=== PATIENT | male | born 1970 | race Caucasian/White ===

== ENCOUNTER 2017-02-08 15:54 | Emergency (ER) | payer OTHER ==
--- NOTE | 2017-02-08 16:56 | ED Physician Documentation ---
PD HPI BACK INJURY - Stated complaint Stated Complaint: BACK PX - History obtained from History obtained from: Patient - History of Present Illness Location: Lower (He's had ongoing lower back pain is mild for the last 6 months. It is in the low back and radiates a little bit into the buttocks but not further. Sometimes worse when he raises the right leg. Today acutely worse while using a screwdriver. There is no weakness, numbness, or tingling of the saddle area or extremities. No fever.) Review of Systems Constitutional: denies: Fever, Chills Respiratory: denies: Dyspnea, Cough GI: denies: Abdominal Pain, Nausea PD PAST MEDICAL HISTORY - Past Medical History Past Medical History: No - Past Surgical History Ortho: Shoulder arthroplasty - Present Medications Home Medications: Ambulatory Orders Medication Instructions Recorded Confirmed Cyclobenzaprine [Flexeril] 10 mg PO TID PRN #20 tablet 02/08/17 Naproxen 500 mg PO BID PRN #30 tablet 02/08/17 - Allergies Allergies/Adverse Reactions: Allergies Allergy/AdvReac Type Severity Reaction Status Date / Time ampicillin Allergy Rash Verified 02/08/17 16:01 - Social History Does the pt smoke?: Yes Smoking Status: Current every day smoker Does the pt drink ETOH?: Yes ETOH Use: Beer Does the pt have substance abuse?: No - Immunizations Immunizations are current?: No Immunizations: TDAP >10years/unknown - POLST Patient has POLST: No PD ED PE NORMAL - Vitals Vital signs reviewed: Yes - General General: Alert and oriented X 3, No acute distress - Abdomen Abdomen: Non tender - Back Back: No CVA TTP, No spinal TTP - Extremities Extremities: Other (The patient has equal and normal patellar and Achilles reflexes bilaterally. Normal sensation in all areas of the legs. Patient denies saddle anesthesia. Normal strength in flexion and extension at the ankles, knees and flexion of the hips.) - Neuro Neuro: Alert and oriented X 3, Normal speech - Psych Psych: Normal mood, Normal affect Results - Vitals Vitals: Vital Signs - 24 hr 02/08/17 16:00 Temperature 36 C L Heart Rate 106 H Respiratory 18 Rate Blood Pressure 142/88 H O2 Saturation 100 Oxygen O2 Source Room air PD MEDICAL DECISION MAKING - ED course ED course: Spinal epidural abscess was considered in this patient. The patient has no fever , is not diabetic, has no spinal tenderness, does not use IV drugs, and no bilateral neurologic symptoms. Therefore, spinal epidural abscess is considered exceedingly unlikely. Departure - Departure Disposition: 01 Home, Self Care Clinical Impression: Back pain Qualifiers: Back pain location: low back pain Chronicity: chronic Back pain laterality: midline Sciatica presence: without sciatica Qualified Code(s): M54.5 - Low back pain; G89.29 - Other chronic pain Condition: Good Record reviewed to determine appropriate education?: Yes Instructions: ED Low Back Pain Injury Prescriptions: Cyclobenzaprine [Flexeril] 10 mg PO TID PRN #20 tablet PRN Reason: Pain Naproxen 500 mg PO BID PRN #30 tablet PRN Reason: Pain Comments: Call your doctor to arrange a follow up appointment. Make the next available appointment. In the interim return anytime if worse or if new symptoms develop. Your blood pressure was elevated today on check in to the emergency department. This does not mean that you have hypertension, it is a common phenomenon to check into the emergency department and have elevated blood pressure. I recommend that you see your primary care physician within the week to have it rechecked when you're feeling better.
[2017-02-08 17:02] VITALS: BP 140/90
== END 2017-02-08 17:04 | disposition home or self-care (01) ==
LOC: ED 15:54
DX: M54.5 Low back pain (principal); R03.0 Elevated blood-pressure reading, without diagnosis of hypertension; F17.200 Nicotine dependence, unspecified, uncomplicated
CPT/HCPCS: 99283

== ENCOUNTER 2017-06-17 08:45 | Emergency (ER) | payer OTHER ==
--- NOTE | 2017-06-17 09:17 | ED Physician Documentation ---
PD HPI ABD PAIN - Stated complaint Stated Complaint: MALE - Chief complaint Chief Complaint: Abd Pain - History obtained from History obtained from: Patient - History of Present Illness Timing - onset: Last night Timing - details: Still present Quality: Sharp Location: Suprapubic, Other (right groin) Worsened by: Moving Associated symptoms: No: Fever, Nausea, Vomiting, Diarrhea, Dysuria Similar symptoms before: Has not had sx before - Additional information Additional information: The patient is a 46-year-old male who presents with lower abdominal pain radiating to the right groin. His pain started last night after heavy lifting yesterday. He describes it as sharp pain that is worse with moving or straining. He denies fever, nausea or vomiting, or dysuria. He reports having similar pain about 2 years ago but did not have it evaluated. He has had no abdominal surgery. Review of Systems Constitutional: denies: Fever Nose: denies: Congestion Throat: denies: Sore throat Cardiac: denies: Chest pain / pressure Respiratory: denies: Dyspnea, Cough GI: reports: Abdominal Pain. denies: Nausea, Vomiting, Diarrhea : denies: Dysuria, Hematuria, Discharge Skin: denies: Rash Musculoskeletal: denies: Back pain, Extremity pain Neurologic: denies: Focal weakness, Numbness, Headache PD PAST MEDICAL HISTORY - Past Medical History Past Medical History: No Respiratory: None Neuro: None Endocrine/Autoimmune: None GI: None - Past Surgical History Ortho: Shoulder arthroplasty HEENT: Rhinoplasty - Present Medications Home Medications: Ambulatory Orders Medication Instructions Recorded Confirmed Naproxen 500 mg PO BID PRN #30 tablet 02/08/17 06/17/17 - Allergies Allergies/Adverse Reactions: Allergies Allergy/AdvReac Type Severity Reaction Status Date / Time ampicillin Allergy Rash Verified 02/08/17 16:01 - Social History Does the pt smoke?: Yes Smoking Status: Current every day smoker Does the pt drink ETOH?: Yes Does the pt have substance abuse?: No - Immunizations Immunizations are current?: No Immunizations: TDAP >10years/unknown - POLST Patient has POLST: No PD ED PE NORMAL - Vitals Vital signs reviewed: Yes (Borderline hypertension initially.) - General General: Alert and oriented X 3, Well developed/nourished - HEENT HEENT: Atraumatic, EOMI, Pharynx benign - Neck Neck: No adenopathy, No JVD - Cardiac Cardiac: RRR, No murmur - Respiratory Respiratory: No respiratory distress, Clear bilaterally - Abdomen Abdomen: Normal bowel sounds, Soft, Non distended, Other (Tenderness to palpation in the right groin, over the inguinal canal.) - Male Male : Other (No scrotal or testicular swelling or tenderness.) - Extremities Extremities: No edema, No calf tenderness / cord - Neuro Neuro: Alert and oriented X 3, No motor deficit, No sensory deficit Results - Vitals Vitals: Oxygen O2 Source Room air - Rads (name of study) Ultrasound pelvic, male Radiology: Prelim report reviewed, EMP read contemporaneously, See rad report ( Reducible fat-containing right inguinal hernia.) PD MEDICAL DECISION MAKING - ED course Complexity details: reviewed results, re-evaluated patient, considered differential, d/w patient ED course: The patient's presentation is most consistent with right inguinal hernia, and this was confirmed with pelvic ultrasound which revealed a reducible fat- containing right inguinal hernia. No therapeutic treatment was clinically indicated at this time. I discussed with him the advisability of surgical repair on a nonemergent basis. I also discussed with him potentially worrisome signs or symptoms that should prompt reevaluation in the emergency department. Departure - Departure Disposition: 01 Home, Self Care Clinical Impression: Inguinal hernia Qualifiers: Obstruction and gangrene presence: without obstruction or gangrene Laterality: unilateral Recurrence: not specified as recurrent Qualified Code(s): K40.90 - Unilateral inguinal hernia, without obstruction or gangrene, not specified as recurrent Condition: Stable Instructions: ED Hernia Inguinal Follow-Up: JENNY CONTRERAS [Primary Care Provider] - Comments: Avoid heavy lifting or straining. Follow-up with your primary physician for referral to a general surgeon. Return to the emergency department if you develop increasing abdominal pain, persistent vomiting, or otherwise worsening symptoms. Discharge Date/Time: 06/17/17 11:12
--- NOTE | 2017-06-17 10:11 | Ultrasound Report ---
PELVIC ULTRASOUND: 06/17/2017 HISTORY: Right groin pain and tenderness. TECHNIQUE: Real-time scanning by the shoe salesperson with saved static images reviewed. FINDINGS: In the area of pain, there is a reducible fat-containing inguinal hernia. The defect in the anterior abdominal wall measures approximately 1 cm and the hernia sac measures approximately 4.6 x 1.1 x 1.8 cm. No peristalsis or fluid is seen within the hernia. IMPRESSION: REDUCIBLE FAT-CONTAINING RIGHT INGUINAL HERNIA. JOB #: [id number] EXT JOB #: [id number] [facility]
[2017-06-17 12:02] VITALS: BP 136/71
== END 2017-06-17 11:12 | disposition home or self-care (01) ==
LOC: ED 08:45
DX: K40.90 Unilateral inguinal hernia, without obstruction or gangrene, not specified as recurrent (principal); F17.200 Nicotine dependence, unspecified, uncomplicated
CPT/HCPCS: 76857; 81001; 81003; 87086; 99283

== ENCOUNTER 2017-12-04 16:07 | Emergency (ER) | payer OTHER ==
[2017-12-04 16:46] LABS: GLUCOSE, URINE (UA) NEGATIVE (NEGATIVE); KETONES,URINE (UA) 15 mg/dL (NEGATIVE); LEUKOCYTE ESTERASE, URINE SMALL (NEGATIVE); NITRITE,URINE NEGATIVE (NEGATIVE); OCCULT BLOOD,URINE LARGE (NEGATIVE); PROTEIN,URINE 30 mg/dL (NEGATIVE); UROBILINOGEN,URINE 1 (NORMAL) E.U./dL (NORMAL)
[2017-12-04 17:03] LABS: BILIRUBIN,URINE SMALL (NEGATIVE); CLARITY,URINE HAZY (CLEAR); ICTOTEST,URINE POSITIVE
[2017-12-04 17:04] LABS: BACTERIA,URINE Moderate /HPF (None Seen); SQUAMOUS EPITHELIAL CELL,UR RARE Squamous (<= Few); WBC CLUMPS,URINE PRESENT
--- NOTE | 2017-12-04 17:58 | ED Physician Documentation ---
History of Present Illness - Stated complaint Stated Complaint: MALE - Chief complaint Chief Complaint: Abd Pain - History obtained from History obtained from: Patient - History of Present Illness Timing: How many days ago (4) Pain level max: 8 Pain level now: 8 Improved by: nothing Worsened by: urination - Additonal information Additional information: states dysuria and urinary frequency x 4 days. States blood in urine. States no history of UTI's. States had mesh removal for an umbilical hernia in September of this year in [place]. Not sexually active. Review of Systems Ten Systems: 10 systems reviewed and negative Constitutional: denies: Fever, Chills Ears: denies: Ear pain Nose: denies: Rhinorrhea / runny nose, Congestion Throat: denies: Sore throat Cardiac: denies: Chest pain / pressure Respiratory: denies: Cough GI: denies: Nausea, Vomiting, Constipation Skin: denies: Rash Musculoskeletal: denies: Neck pain Neurologic: denies: Focal weakness, Numbness, Headache PD PAST MEDICAL HISTORY - Past Medical History Past Medical History: Yes Respiratory: None Neuro: None Endocrine/Autoimmune: None GI: None - Past Surgical History Ortho: Shoulder arthroplasty HEENT: Rhinoplasty - Present Medications Home Medications: Ambulatory Orders Medication Instructions Recorded Confirmed Ciprofloxacin HCl [Cipro] 500 mg PO BID #20 tablet 12/04/17 Dextroamphetamine/Amphetamine 12/04/17 [Adderall 20 mg Tablet] Hydrocodone/Acetaminophen 1 - 2 each PO Q6H PRN #14 tablet 12/04/17 [Hydrocodon-Acetaminophen 5-325] Promethazine [Phenergan] 25 mg PO Q6H PRN #10 tab 12/04/17 buPROPion [Wellbutrin Sr] 12/04/17 - Allergies Allergies/Adverse Reactions: Allergies Allergy/AdvReac Type Severity Reaction Status Date / Time ampicillin Allergy Rash Verified 12/04/17 16:20 - Social History Does the pt smoke?: Yes Smoking Status: Current every day smoker Does the pt drink ETOH?: Yes Does the pt have substance abuse?: No - Immunizations Immunizations are current?: No Immunizations: TDAP >10years/unknown - POLST Patient has POLST: No PD ED PE NORMAL - Vitals Vital signs reviewed: Yes - General General: Alert and oriented X 3, No acute distress - HEENT HEENT: Moist mucous membranes - Neck Neck: Supple, no meningeal sign - Cardiac Cardiac: RRR, Strong equal pulses - Respiratory Respiratory: No respiratory distress, Clear bilaterally - Abdomen Abdomen: Soft, Non tender, Non distended - Back Back: No spinal TTP, Other (mild B CVAT) - Derm Derm: Warm and dry - Neuro Neuro: Alert and oriented X 3 Results - Vitals Vitals: Vital Signs - 24 hr 12/04/17 12/04/17 12/04/17 16:15 18:46 19:38 Temperature 37.4 C Heart Rate 118 H 100 101 H Respiratory 24 15 16 Rate Blood Pressure 121/74 147/88 H 126/75 O2 Saturation 100 100 100 12/04/17 20:44 Temperature Heart Rate 98 Respiratory 16 Rate Blood Pressure 157/87 H O2 Saturation 95 Oxygen O2 Source Room air - Labs Labs: Laboratory Tests 12/04/17 12/04/17 12/04/17 16:20 18:20 18:20 WBC 17.3 H RBC 4.66 L Hgb 13.4 L Hct 40.7 L MCV 87.2 MCH 28.7 MCHC 32.9 RDW 14.3 Plt Count 236 MPV 6.9 L Neut # MANAGER EDITORIAL Lymph # MANAGER EDITORIAL [place] # MANAGER EDITORIAL Eos # MANAGER EDITORIAL Baso # MANAGER EDITORIAL Absolute Nucleated RBC MANAGER EDITORIAL Total Counted 100 Band Neuts % (Manual) 4 Reactive Lymphs % (Man) 2 Abnorm Lymph % (Manual) 0 Nucleated RBC % MANAGER EDITORIAL Neutrophils # (Manual) 14.5 H Lymphocytes # (Manual) 1.6 Monocytes # (Manual) 1.2 H Eosinophils # (Manual) 0.0 Basophils # (Manual) 0.0 Differential Comment MANUAL DIFFERENTIAL Platelet Estimate NORMAL (130-450,000) Platelet Morphology NORMAL APPEARANCE RBC Morph Micro Appear NORMAL APPEARANCE Sodium 132 L Potassium 4.0 Chloride 98 L Carbon Dioxide 25 Anion Gap 9.0 BUN 18 Creatinine 1.3 H Estimated GFR (MDRD) 59 L Glucose 107 H Lactic Acid Calcium 8.9 Total Bilirubin 1.1 H AST 15 ALT 19 Alkaline Phosphatase 62 Total Protein 7.7 Albumin 3.9 Globulin 3.8 Albumin/Globulin Ratio 1.0 Lipase < 10 L Urine Color DARK YELLOW Urine Clarity HAZY Urine pH 6.0 Ur Specific [place] 1.025 Urine Protein 30 H Urine Glucose (UA) NEGATIVE Urine Ketones 15 H Urine Occult Blood LARGE H Urine Nitrite NEGATIVE Urine Bilirubin SMALL H Urine Urobilinogen 1 (NORMAL) Ur Leukocyte Esterase SMALL H Urine RBC 11-25 H Urine WBC >25 H Urine WBC Clumps PRESENT Ur Squamous Epith Cells RARE Squamous Urine Bacteria Moderate H Ur Microscopic Review INDICATED Urine Culture Comments INDICATED 12/04/17 18:20 WBC RBC Hgb Hct MCV MCH MCHC RDW Plt Count MPV Neut # Lymph # [place] # Eos # Baso # Absolute Nucleated RBC Total Counted Band Neuts % (Manual) Reactive Lymphs % (Man) Abnorm Lymph % (Manual) Nucleated RBC % Neutrophils # (Manual) Lymphocytes # (Manual) Monocytes # (Manual) Eosinophils # (Manual) Basophils # (Manual) Differential Comment Platelet Estimate Platelet Morphology RBC Morph Micro Appear Sodium Potassium Chloride Carbon Dioxide Anion Gap BUN Creatinine Estimated GFR (MDRD) Glucose Lactic Acid 1.1 Calcium Total Bilirubin AST ALT Alkaline Phosphatase Total Protein Albumin Globulin Albumin/Globulin Ratio Lipase Urine Color Urine Clarity Urine pH Ur Specific [place] Urine Protein Urine Glucose (UA) Urine Ketones Urine Occult Blood Urine Nitrite Urine Bilirubin Urine Urobilinogen Ur Leukocyte Esterase Urine RBC Urine WBC Urine WBC Clumps Ur Squamous Epith Cells Urine Bacteria Ur Microscopic Review Urine Culture Comments PD MEDICAL DECISION MAKING - ED course Complexity details: reviewed results, re-evaluated patient, considered differential, d/w patient ED course: Patient is a 47-year-old male who presents to the emergency department with what appears to be a UTI, he did appear that he was not feeling well in the emergency department and was given IV fluids as well as IV antibiotics for possible early pyelonephritis. [place] much better after treatment. Pain well controlled. Will place on pain medication for home as well as antibiotics. He will return if he worsens. Does not appear septic at this time. Patient counseled regarding signs and symptoms for which I believe and urgent re- evaluation would be necessary. Patient with good understanding of and agreement to plan and is comfortable going home at this time This document was made in part using voice recognition software. While efforts are made to proofread this document, sound alike and grammatical errors may occur. Departure - Departure Disposition: 01 Home, Self Care Clinical Impression: Pyelonephritis Condition: Good Instructions: ED UTI Pyelonephritis Male Follow-Up: your,doctor in 3 days [Other] Prescriptions: Ciprofloxacin HCl [Cipro] 500 mg PO BID #20 tablet Hydrocodone/Acetaminophen [Hydrocodon-Acetaminophen 5-325] 1 - 2 each PO Q6H PRN #14 tablet PRN Reason: pain Promethazine [Phenergan] 25 mg PO Q6H PRN #10 tab PRN Reason: Nausea / Vomiting Comments: Take all antibiotics until gone. Return if you worsen. If you are not feeling significantly improved in 24-48 hours, return for a recheck. Do not drink alcohol or drive while on narcotic pain medicine. Note that many narcotic pain relievers also contain tylenol/acetaminophen. Please ensure that your total dose of acetaminophen from all sources does not exceed 3 grams (3000mg) per day. You may constipated on this medication, take a stool softener such as "Colace" twice a day while you are on it. Also recommend a [id number]-tgp-noykseo laxative such as senna or MiraLAX any day that you do not have a bowel movement. If you received narcotic pain medication in the emergency department, do not drive or operate machinery for the next 24 hours. Discharge Date/Time: 12/04/17 20:45
[2017-12-04] MEDS ORDERED: SODIUM CHLORIDE 0.9% 1,000 ML IV ONE ×2 (18:00)
[2017-12-04] MEDS ORDERED: KETOROLAC 60 MG/2 ML VIAL IVP STA (18:02)
[2017-12-04 18:27] LABS: BASOPHILS % (AUTO) 0.4 %; EOSINOPHILS % (AUTO) 0.3 %; HGB - HEMOGLOBIN 13.4 g/dL (14.0-18.0); MEAN CORPUSCULAR HEMOGLOBIN 28.7 pg (27.0-31.0); MEAN CORPUSCULAR HGB CONC 32.9 g/dL (32.0-36.0); MEAN CORPUSCULAR VOLUME 87.2 fL (80.0-94.0); MEAN PLATELET VOLUME 6.9 fL (7.4-11.4); MONOCYTES % (AUTO) 8.2 %; NEUTROPHILS % (AUTO) 82.1 %; PLT - PLATELET COUNT 236 10^3/uL (130-450); RED BLOOD COUNT 4.66 10^6/uL (4.70-6.10); RED CELL DISTRIBUTION WIDTH 14.3 % (12.0-15.0); WHITE BLOOD COUNT 17.3 x10^3/uL (4.8-10.8)
[2017-12-04] MEDS ORDERED: cefTRIAXone 1 GM VIAL IVP STA (18:33)
[2017-12-04 18:35] LABS: ABNORMAL LYMPHS % (MANUAL) 0 %
[2017-12-04 18:52] LABS: ALBUMIN 3.9 g/dL (3.2-5.5); ALKALINE PHOSPHATASE 62 IU/L (42-121); ALT ALANINE AMINOTRANSFERASE 19 IU/L (10-60); AST ASPARTATE AMINOTRANSFERASE 15 IU/L (10-42); BILIRUBIN,TOTAL 1.1 mg/dL (0.2-1.0); BUN - BLOOD UREA NITROGEN 18 mg/dL (6-20); CALCIUM 8.9 mg/dL (8.5-10.3); CARBON DIOXIDE - CO2 25 mmol/L (21-32); CHLORIDE 98 mmol/L (101-111); CREATININE 1.3 mg/dL (0.6-1.2); GFR - MDRD 59 (>89); GLUCOSE 107 mg/dL (70-100); LIPASE < 10 U/L (22-51); SODIUM 132 mmol/L (135-145); TOTAL PROTEIN 7.7 g/dL (6.7-8.2)
[2017-12-04 19:31] LABS: BAND NEUTROPHILS % (MANUAL) 4 %; LYMPHOCYTES # (MANUAL) 1.6 10^3/uL (1.5-3.5); LYMPHOCYTES % (MANUAL) 7 %; MONOCYTES # (MANUAL) 1.2 10^3/uL (0.0-1.0); NEUTROPHILS # (MANUAL) 14.5 10^3/uL (1.5-6.6); NEUTROPHILS % (MANUAL) 80 %
[2017-12-04 19:32] LABS: PLATELET ESTIMATE, MANUAL NORMAL (130-450,000) (NORMAL); PLATELET MORPHOLOGY NORMAL APPEARANCE (NORMAL); RBC MORPHOLOGY (MULTIPLE) NORMAL APPEARANCE (NORMAL)
[2017-12-04 19:33] LABS: DIFFERENTIAL COMMENT MANUAL DIFFERENTIAL
[2017-12-04 20:45] VITALS: BP 157/87
== END 2017-12-04 20:45 | disposition home or self-care (01) ==
LOC: ED 16:07
DX: N12 Tubulo-interstitial nephritis, not specified as acute or chronic (principal); F17.200 Nicotine dependence, unspecified, uncomplicated
CPT/HCPCS: 36415; 80053; 81001; 81003; 83605; 83690; 85025; 87077; 87086; 96374; 96375; 99283; 99284

== ENCOUNTER 2018-09-27 00:52 | Emergency (ER) | payer OTHER ==
[2018-09-27] MEDS ORDERED: oxyCODONE 5 MG TABLET PO STA (01:08)
[2018-09-27] MEDS ORDERED: IBUPROFEN 400 MG TABLET PO STA (01:08)
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
[2018-09-27] MEDS ORDERED: oxyCODONE/ACET 5/325 Prepack 4 PO STA (01:18)
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
[2018-09-27] MEDS ORDERED: BACITRACIN OINT TOP STA (01:53)
[2018-09-27 02:50] VITALS: BP 123/71
== END 2018-09-27 02:52 | disposition home or self-care (01) ==
LOC: ED 00:52
DX: T23.262A Burn of second degree of back of left hand, initial encounter (principal); T31.0 Burns involving less than 10% of body surface; X03.8XXA Other exposure to controlled fire, not in building or structure, initial encounter
CPT/HCPCS: 73130; 99283; A9270

== ENCOUNTER 2018-09-28 19:32 | Emergency (ER) | payer OTHER ==
[2018-09-28 19:44] VITALS: BP 148/82
[2018-09-28] MEDS ORDERED: BACITRACIN OINT TOP ONE (19:56)
--- NOTE | 2018-09-28 19:57 | ED Physician Documentation ---
PD HPI UPPER EXT INJURY - Stated complaint Stated Complaint: ARM HAND CHECK UP - Chief complaint Chief Complaint: Ext Problem - History obtained from History obtained from: Patient - History of Present Illness Location: Left, Hand Type of injury: Burn Timing - onset: Other (Seen here 2 nights ago for burn of the left hand and returns as recommended for a wound check. No specific complaints and pain is not too bad.) Review of Systems Constitutional: reports: Reviewed and negative Cardiac: reports: Reviewed and negative Respiratory: reports: Reviewed and negative PD PAST MEDICAL HISTORY - Past Medical History Cardiovascular: None Respiratory: None Neuro: None Endocrine/Autoimmune: None GI: None : None HEENT: None Psych: None Musculoskeletal: None Derm: None - Past Surgical History Past Surgical History: Yes General: Other Ortho: Shoulder arthroplasty HEENT: Rhinoplasty - Present Medications Home Medications: Ambulatory Orders Medication Instructions Recorded Confirmed Ciprofloxacin HCl [Cipro] 500 mg PO BID #20 tablet 12/04/17 Dextroamphetamine/Amphetamine 12/04/17 [Adderall 20 mg Tablet] Hydrocodone/Acetaminophen 1 - 2 each PO Q6H PRN #14 tablet 12/04/17 [Hydrocodon-Acetaminophen 5-325] Promethazine [Phenergan] 25 mg PO Q6H PRN #10 tab 12/04/17 buPROPion [Wellbutrin Sr] 12/04/17 - Allergies Allergies/Adverse Reactions: Allergies Allergy/AdvReac Type Severity Reaction Status Date / Time ampicillin Allergy Rash Verified 09/28/18 19:39 - Social History Does the pt smoke?: Yes Smoking Status: Current every day smoker Does the pt drink ETOH?: Yes Does the pt have substance abuse?: No - Immunizations Immunizations are current?: No Immunizations: TDAP >10years/unknown - POLST Patient has POLST: No PD ED PE NORMAL - Vitals Vital signs reviewed: Yes - General General: Alert and oriented X 3, No acute distress - Extremities Extremities: Other (Healing second degree miranda of the dorsum of the left hand, the worst of it is over the proximal phalanges of the fourth and fifth fingers. He has full range of motion. There is no evidence of infection.) - Neuro Neuro: Alert and oriented X 3, Normal speech Results - Vitals Vitals: Vital Signs - 24 hr 09/28/18 19:35 Temperature 36.8 C Heart Rate 102 H Respiratory 16 Rate Blood Pressure 148/82 H O2 Saturation 98 Oxygen O2 Source Room air PD MEDICAL DECISION MAKING - ED course ED course: Wounds were dressed with bacitracin and nonstick dressings and he was counseled on wound care. Departure - Departure Disposition: 01 Home, Self Care Clinical Impression: Burn of hand Qualifiers: Encounter type: subsequent encounter Burn of hand location: multiple sites Laterality: left Burn degree: partial thickness (2nd degree) Qualified Code(s): T23.292D - Burn of second degree of multiple sites of left wrist and hand, subsequent encounter Instructions: ED Burn D 2nd Comments: As discussed, you can remove the bandages once a day and wash it briefly with soap and water. Then apply bacitracin ointment which is available [id number], a nonstick dressing such as Telfa and a wrap. My suspicion is he will have to do this for a few days to week but probably not more. Your blood pressure was elevated today on check into the emergency department. This does not mean that you have hypertension, it is a common phenomenon to come to the emergency department and have elevated blood pressure. I recommend that you see your primary care physician within the week to have it rechecked when you are feeling better.
== END 2018-09-28 20:04 | disposition home or self-care (01) ==
LOC: ED 19:32
DX: T23.292D Burn of second degree of multiple sites of left wrist and hand, subsequent encounter (principal); T31.0 Burns involving less than 10% of body surface; X08.8XXD Exposure to other specified smoke, fire and flames, subsequent encounter; F17.200 Nicotine dependence, unspecified, uncomplicated
CPT/HCPCS: 99282; 99283; A9270

== ENCOUNTER 2020-06-20 12:00 | Inpatient (IN) | payer OTHER ==
[2020-06-20] MEDS ORDERED: EPINEPHrine 1 MG/ML AMP ONE (12:12)
[2020-06-20] MEDS ORDERED: methylPREDNISolone SUCCINATE 125 MG/2 ML VIAL IVP STA (12:15)
[2020-06-20] MEDS ORDERED: EPINEPHrine ABBOJECT 1 MG/10 ML SYRINGE IM STA (12:16)
[2020-06-20] MEDS ORDERED: EPINEPHrine 1 MG/ML AMP IM STA (12:17)
[2020-06-20] MEDS ORDERED: SODIUM CHLORIDE 0.9% 1,000 ML IV STA ×3 (12:17→12:24)
[2020-06-20] MEDS ORDERED: methylPREDNISolone SUCCINATE 125 MG/2 ML VIAL ONE (12:24)
[2020-06-20] MEDS ORDERED: diphenhydrAMINE INJ 50 MG/ML VIAL IVP STA (12:24)
[2020-06-20] MEDS ORDERED: ALBUTEROL NEB 2.5 MG/3 ML INH STA (12:32)
[2020-06-20 12:38] LABS: BASOPHILS % (AUTO) 0.3 %; EOSINOPHILS % (AUTO) 0.3 %; HGB - HEMOGLOBIN 16.8 g/dL (14.0-18.0); LYMPHOCYTES % (AUTO) 80.1 %; MEAN CORPUSCULAR HEMOGLOBIN 30.9 pg (27.0-31.0); MEAN CORPUSCULAR HGB CONC 32.2 g/dL (32.0-36.0); MEAN CORPUSCULAR VOLUME 95.9 fL (80.0-94.0); MEAN PLATELET VOLUME 9.3 fL (7.4-11.4); MONOCYTES % (AUTO) 3.1 %; PLT - PLATELET COUNT 280 10^3/uL (130-450); RED BLOOD COUNT 5.43 10^6/uL (4.70-6.10); RED CELL DISTRIBUTION WIDTH 13.6 % (12.0-15.0); WHITE BLOOD COUNT 5.9 x10^3/uL (4.8-10.8)
[2020-06-20 12:42] LABS: ABNORMAL LYMPHS % (MANUAL) 0 %; CALCIUM 9.1 mg/dL (8.5-10.3); CREATININE 1.3 mg/dL (0.6-1.2)
[2020-06-20 12:59] LABS: BAND NEUTROPHILS % (MANUAL) 3 %; LYMPHOCYTES # (MANUAL) 4.2 10^3/uL (1.5-3.5); LYMPHOCYTES % (MANUAL) 28 %; MONOCYTES # (MANUAL) 0.5 10^3/uL (0.0-1.0)
[2020-06-20 13:00] LABS: DIFFERENTIAL COMMENT MANUAL DIFFERENTIAL; RBC MORPHOLOGY (MULTIPLE) 1+ ANISOCYTOSIS (NORMAL)
[2020-06-20 14:05] LABS: ACETAMINOPHEN < 10 ug/mL (10-30); SALICYLATE < 6.0 mg/dL
--- NOTE | 2020-06-20 14:06 | ED Physician Documentation ---
History of Present Illness - Stated complaint Stated Complaint: ALLERGIC REACTION - Chief complaint Chief Complaint: Allergic Rx - History obtained from History obtained from: Patient - History of Present Illness Timing: Today Pain level max: 0 Pain level now: 0 - Additonal information Additional information: Patient unable to give any history, he presented to triage unresponsive with an epinephrine pen in his lap. He apparently told the registration that he was having an allergic reaction. No other history available Review of Systems Unable to obtain: Unresponsive PD PAST MEDICAL HISTORY - Past Medical History Past Medical History: Yes Cardiovascular: None Respiratory: None Neuro: None Endocrine/Autoimmune: None GI: None : None HEENT: None Psych: None Musculoskeletal: None Derm: None - Past Surgical History Past Surgical History: Yes General: Other Ortho: Shoulder arthroplasty HEENT: Rhinoplasty - Present Medications Home Medications: Ambulatory Orders Medication Instructions Recorded Confirmed Ciprofloxacin HCl [Cipro] 500 mg PO BID #20 tablet 12/04/17 Dextroamphetamine/Amphetamine 12/04/17 [Adderall 20 mg Tablet] Hydrocodone/Acetaminophen 1 - 2 each PO Q6H PRN #14 tablet 12/04/17 [Hydrocodon-Acetaminophen 5-325] Promethazine [Phenergan] 25 mg PO Q6H PRN #10 tab 12/04/17 buPROPion [Wellbutrin Sr] 12/04/17 - Allergies Allergies/Adverse Reactions: Allergies Allergy/AdvReac Type Severity Reaction Status Date / Time ampicillin Allergy Rash Verified 09/28/18 19:39 bee venom protein (honey bee) Allergy Anaphylaxis Verified 06/20/20 12:43 - Social History Does the pt smoke?: Yes Smoking Status: Current every day smoker Does the pt drink ETOH?: Yes Does the pt have substance abuse?: No - Immunizations Immunizations are current?: No Immunizations: TDAP >10years/unknown - POLST Patient has POLST: No PD ED PE NORMAL - Vitals Vital signs reviewed: Yes - General General: Other (Cyanotic, unresponsive, sonorous respirations) - HEENT HEENT: Moist mucous membranes - Neck Neck: Supple, no meningeal sign - Cardiac Cardiac: RRR - Respiratory Respiratory: Clear bilaterally - Abdomen Abdomen: Soft, Non tender, Non distended - Derm Derm: Other (Pale, cool skin) - Extremities Extremities: No edema - Neuro Neuro: Other (Sonorous, unresponsive) Eye Opening: None Motor: None Verbal: None GCS Score: 3 Results - Vitals Vitals: Vital Signs - 24 hr 06/20/20 06/20/20 06/20/20 12:37 12:38 12:43 Temperature 36.2 C L Heart Rate 115 H 105 H 108 H Respiratory 32 H 22 17 Rate Blood Pressure 77/51 L 103/86 H O2 Saturation 83 L 100 06/20/20 06/20/20 06/20/20 12:45 13:00 13:15 Temperature Heart Rate 108 H 101 H 99 Respiratory 20 15 14 Rate Blood Pressure 130/97 H 120/84 H 129/86 H O2 Saturation 98 98 98 06/20/20 14:01 Temperature Heart Rate 96 Respiratory 18 Rate Blood Pressure 115/88 H O2 Saturation 97 Oxygen O2 Source Room air - Labs Labs: Laboratory Tests 06/20/20 06/20/20 06/20/20 12:15 12:15 13:15 WBC 5.9 RBC 5.43 Hgb 16.8 Hct 52.1 H MCV 95.9 H MCH 30.9 MCHC 32.2 RDW 13.6 Plt Count 280 MPV 9.3 Neut # (Auto) Not Reportable Lymph # (Auto) Not Reportable [place] # (Auto) Not Reportable Eos # (Auto) Not Reportable Baso # (Auto) Not Reportable Absolute Nucleated RBC Not Reportable Total Counted 100 Band Neuts % (Manual) 3 Reactive Lymphs % (Man) 44 Abnorm Lymph % (Manual) 0 Nucleated RBC % Not Reportable Neutrophils # (Manual) 1.2 L Lymphocytes # (Manual) 4.2 H Monocytes # (Manual) 0.5 Eosinophils # (Manual) 0.0 Basophils # (Manual) 0.0 Differential Comment MANUAL DIFFERENTIAL Manual Slide Review Indicated RBC Morph Micro Appear 1+ ANISOCYTOSIS Sodium 139 Potassium 4.0 Chloride 105 Carbon Dioxide 24 Anion Gap 10.0 BUN 21 H Creatinine 1.3 H Estimated GFR (MDRD) 58 L Glucose 160 H Calcium 9.1 TSH 2.04 Salicylates Acetaminophen Ethyl Alcohol 06/20/20 13:15 WBC RBC Hgb Hct MCV MCH MCHC RDW Plt Count MPV Neut # (Auto) Lymph # (Auto) [place] # (Auto) Eos # (Auto) Baso # (Auto) Absolute Nucleated RBC Total Counted Band Neuts % (Manual) Reactive Lymphs % (Man) Abnorm Lymph % (Manual) Nucleated RBC % Neutrophils # (Manual) Lymphocytes # (Manual) Monocytes # (Manual) Eosinophils # (Manual) Basophils # (Manual) Differential Comment Manual Slide Review RBC Morph Micro Appear Sodium Potassium Chloride Carbon Dioxide Anion Gap BUN Creatinine Estimated GFR (MDRD) Glucose Calcium TSH Salicylates < 6.0 Acetaminophen < 10 L Ethyl Alcohol < 5.0 PD MEDICAL DECISION MAKING - ED course Complexity details: reviewed results, considered differential, d/w patient, d/w transformation consultant ED course: Patient with anaphylaxis to a bee sting. He was given an EpiPen in triage when he arrived. He was given another 0.3 mg of epi IM here. Was then given Solu- Medrol and IV Benadryl. IV fluids given. Patient gradually improved. No longer hypoxic or hypotensive. Tachycardia improved as well. He is still having some lingering altered mental status. Given the severity of his anaphylaxis, will place him in observation tonight for close monitoring. Discussed the case with Dr. Ramírez, hospitalist who accepts This document was made in part using voice recognition software. While efforts are made to proofread this document, sound alike and grammatical errors may occur. - Critical Care Time(min): 65 Time Includes: Direct patient care, Document care, See progress note Data interpretation: See progress note Procedures included in critical care time: See progress note Procedures excluded from critical care time: See progress note Departure - Departure Disposition: ED Place in Observation Clinical Impression: Anaphylaxis Qualifiers: Encounter type: initial encounter Qualified Code(s): T78.2XXA - Anaphylactic shock, unspecified, initial encounter Condition: Stable
[2020-06-20] MEDS ORDERED: ONDANSETRON 4 MG/2 ML VIAL IVP PRN (14:08)
[2020-06-20] MEDS ORDERED: HYDROmorphone 0.5 MG/0.5 ML SYRINGE IVP PRN (14:08)
[2020-06-20] MEDS: DEXTROSE 5%-0.9% NACL 1,000 ML IV SCH (15:44)
--- NOTE | 2020-06-20 17:19 | HISTORY & PHYSICAL EXAMINATION ---
DATE OF SERVICE: 06/20/2020 Physician: Fanny Ramírez MD HISTORY OF PRESENT ILLNESS: This is a 49-year-old white male, relatively healthy. According to his medication list, he has adult ADHD. The patient was stung by a bee today and he has an EpiPen, but he did not take it. Instead, he drove himself to the emergency room. As he walked in and up to the registration table, he collapsed and became unresponsive. He was put into a wheelchair and wheeled into the emergency room and then put on a gurney. His sytolic BP was 70 and O2 saturation was 70%. The staff in the ER noticed that he had an EpiPen in his lap and his exam was consistent with an anaphylactic reaction with airway closure and he had the EpiPen administered. In the ER, the [employer] technical lead senior developer noted that he was having agonal respirations and was cyanotic, and had severe airway obstruction. An oral airway was inserted without difficulty and then he was also given oxygen at 5 liters per minute via a nonrebreather mask and he regained spontaneous respirations. He also then got iv Solu-Medrol, iv Benadryl and IV fluids were started. He was still somnolent and slowly waking up after 10 minutes. The emergency room doctor called the Hospitalist to have this patient placed in observation to assure that he had full recovery of his anaphylactic reaction. PAST MEDICAL HISTORY: Possibly ADHD. MEDICATIONS: 1. Bupropion 100 mg, unknown dose. 2. Adderall 20 mg, unknown frequency. 3. Tylenol with codeine p.r.n. 4. Flexeril p.r.n. 5. Phenergan p.r.n. ALLERGIES: AMPICILLIN AND BEE VENOM. FAMILY HISTORY: Noncontributory. SOCIAL HISTORY: He is a smoker of unknown amount. He does drink beer occasionally. No illicit drug use history. 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 REVIEW OF SYSTEMS: The /significant other told me he called her while en route to the ER and his voice started to slur. A comprehensive review of systems was performed by chart review and speaking to the and ER doctor as the patient is still somnolent and the pertinent positives are listed, the rest are negative. PHYSICAL EXAM: GENERAL: Well built white male. VITAL SIGNS: Blood pressure now 129/86. Heart rate is now 82 in sinus rhythm. He is afebrile. Room air saturation is 95%. HEENT: Reveals a hoarse voice. His oral airway is patent. There is redness, but no swelling of the posterior pharynx. NECK: No stridor. CHEST: Clear. HEART: Normal heart sounds. ABDOMEN: Soft. EXTREMITIES: No clubbing, cyanosis or edema. NEUROLOGIC: Grossly intact. LABORATORY DATA: Normal electrolytes, BUN 21, creatinine 1.3 and his last creatinine was also 1.3 two years ago. TSH is normal. CBC shows a white count of 5.9, hemoglobin 16, platelet count 280. Toxicology was negative for alcohol, Tylenol and salicylate. IMAGING: No images were done. IMPRESSION/DIAGNOSES: 1. Anaphylactic shock. 2. Anaphylaxis to bee sting. 3. Chronic kidney disease. PLAN: Place the patient in Observation status in the intensive care unit for close monitoring of vital signs and rhythm to assure that he has complete recovery from this anaphylactic reaction with shock. Continue with steroids for 24 hours at least. Use Benadryl p.r.n. Slowly advance diet from clear liquids to a pureed to assure that his throat is stable for swallowing. Resume his Adderall if that is a current, up to date medication. CODE STATUS: FULL CODE. DEEP VENOUS THROMBOSIS: PROPHYLAXIS: SCDs. ATTESTATION: The patient is expected to be discharged or transferred to another facility within 96 hours: Yes. TD: 06/20/2020 16:58 ONESIMO
[2020-06-20 18:19] LABS: MUDS CUTOFF CONCENTRATIONS CUTOFF CONC BELOW:
[2020-06-20 18:27] LABS: BILIRUBIN,URINE NEGATIVE (NEGATIVE); GLUCOSE, URINE (UA) NEGATIVE (NEGATIVE); KETONES,URINE (UA) NEGATIVE (NEGATIVE); LEUKOCYTE ESTERASE, URINE NEGATIVE (NEGATIVE); NITRITE,URINE NEGATIVE (NEGATIVE); OCCULT BLOOD,URINE NEGATIVE (NEGATIVE); PH,URINE 5.5 PH (5.0-7.5); PROTEIN,URINE 30 mg/dL (NEGATIVE); UROBILINOGEN,URINE 0.2 (NORMAL) E.U./dL (NORMAL)
[2020-06-20 18:29] LABS: CLARITY,URINE HAZY (CLEAR)
[2020-06-20 18:38] LABS: RBC,URINE 0-5 /HPF (0-5); SQUAMOUS EPITHELIAL CELL,UR RARE Squamous (<= Few)
[2020-06-20 18:39] LABS: BACTERIA,URINE Rare /HPF (None Seen); MUCUS,URINE Moderate Strands
[2020-06-20 18:40] LABS: AMPHETAMINE SCREEN,URINE POSITIVE (NEGATIVE); BENZODIAZEPINES SCREEN, URINE NEGATIVE (NEGATIVE); COCAINE SCREEN URINE NEGATIVE (NEGATIVE); METHADONE SCREEN, URINE NEGATIVE (NEGATIVE); METHAMPHETAMINES SCREEN, URINE POSITIVE (NEGATIVE); OPIATE SCREEN, URINE NEGATIVE (NEGATIVE); OXYCODONE SCREEN, URINE NEGATIVE (NEGATIVE); PROPOXYPHENE SCREEN, URINE NEGATIVE (NEGATIVE); SPERM,URINE PRESENT; TRICYCLIC ANTIDEPRESSANT,URINE NEGATIVE (NEGATIVE)
[2020-06-20] MEDS: SODIUM CHLORIDE FLUSH 0.9% 10 ML SYRINGE IVP SCH ×2 (18:45→23:46)
[2020-06-20] MEDS: methylPREDNISolone SUCCINATE 40 MG/ML VIAL IVP SCH ×2 (18:55→23:46)
[2020-06-20] MEDS ORDERED: methylPREDNISolone SUCCINATE 40 MG/ML VIAL IVP SCH (19:00)
[2020-06-21] MEDS: DEXTROSE 5%-0.9% NACL 1,000 ML IV SCH ×2 (00:54→10:39)
[2020-06-21 05:12] LABS: BASOPHILS % (AUTO) 0.2 %; EOSINOPHILS # (AUTO) 0.1 10^3/uL (0.0-0.7); EOSINOPHILS % (AUTO) 0.6 %; LYMPHOCYTES # (AUTO) 1.2 10^3/uL (1.5-3.5); LYMPHOCYTES % (AUTO) 7.6 %; MEAN CORPUSCULAR HEMOGLOBIN 30.2 pg (27.0-31.0); MEAN CORPUSCULAR HGB CONC 31.3 g/dL (32.0-36.0); MEAN CORPUSCULAR VOLUME 96.6 fL (80.0-94.0); MEAN PLATELET VOLUME 9.2 fL (7.4-11.4); MONOCYTES # (AUTO) 0.2 10^3/uL (0.0-1.0); MONOCYTES % (AUTO) 1.4 %; NEUTROPHILS % (AUTO) 89.1 %; PLT - PLATELET COUNT 250 10^3/uL (130-450); RED BLOOD COUNT 4.64 10^6/uL (4.70-6.10); RED CELL DISTRIBUTION WIDTH 13.7 % (12.0-15.0); WHITE BLOOD COUNT 15.8 x10^3/uL (4.8-10.8)
[2020-06-21 05:24] LABS: CALCIUM 8.7 mg/dL (8.5-10.3); CREATININE 0.8 mg/dL (0.6-1.2); MAGNESIUM 1.9 mg/dL (1.7-2.8)
[2020-06-21] MEDS: methylPREDNISolone SUCCINATE 40 MG/ML VIAL IVP SCH ×4 (06:11→23:20)
[2020-06-21] MEDS: SODIUM CHLORIDE FLUSH 0.9% 10 ML SYRINGE IVP PRN ×3 (06:13→23:20)
[2020-06-21] MEDS: AMPHETAMINE PO SCH (10:59)
[2020-06-21] MEDS: DEXTROAMPHETAMINE PO SCH (10:59)
[2020-06-21] MEDS: SODIUM CHLORIDE FLUSH 0.9% 10 ML SYRINGE IVP SCH ×3 (11:00→22:04)
--- NOTE | 2020-06-21 17:11 | PROVIDER PROGRESS NOTE ---
Assessment/Plan - Problem List (1) Memory deficit Assessment/Plan: The patient's /significant other notices many gaps in his memory, short- term. He did not even recognize me from seeing him earlier in the day. No focal motor deficit on exam, he is able to ambulate in the hallway. Will order brain MRI to evaluate for stroke or anoxic brain injury. Will place him in inpatient status. (2) Anaphylactic shock Assessment/Plan: His blood pressure was documented as low as 70 and he was desaturating to 70%. This would be the cause of the anoxic brain damage, if it is found. (3) Anaphylactic reaction to bee sting Assessment/Plan: It was ordered that he watch a video on how to administer EpiPen, his /significant other is watching it as well. Everyone reiterated the importance of urgent management if this should happen again in the future. There is still some hand swelling and he continues on every 6 hour IV Solu-M edrol. Will discharge him with a Medrol Dosepak taper, when he is ready for Dch. (4) CKD (chronic kidney disease) Assessment/Plan: Elevated creatinine has resolved, since he was on overnight IV hydration. We will discontinue IV hydration since he is taking adequate p.o. fluid - Current Meds Current Meds: Current Medications Generic Name Dose Route Start Last Admin Trade Name May PRN Reason Stop Dose Admin Methylprednisolone 40 mg 06/20/20 18:00 06/21/20 12:14 Solu-Medrol (40mg Vial) IVP 40 mg Q6HR GOLDEN Administration Patient Own Med ( 1 each 06/21/20 09:15 06/21/20 10:59 Dextroamphetamine/ PO Not Given Amphetamine [ DAILY GOLDEN Adderall 20 Mg Tablet] 20 Mg) Sodium Chloride 10 ml 06/20/20 17:00 06/21/20 11:00 Normal Saline Flush 0.9% IVP 10 ml 0100,0900,1700 GOLDEN Administration Sodium Chloride 10 ml 06/20/20 14:08 06/21/20 06:13 Normal Saline Flush 0.9% IVP 10 ml PRN PRN Administration NEEDED PER PROVIDER ORDERS - Lab Result Fish Bone Diagrams: 06/21/20 04:35 06/21/20 04:35 - Additional Planning My Orders: My Active Orders 06/20/20 17:00 Sodium Chloride Flush 0.9% [Normal Saline Flush 0.9%] 10 ml IVP 0100,0900,1700 06/20/20 18:00 methylPREDNISolone SUCCINATE [SOLU-Medrol (40MG VIAL)] 40 mg IVP Q6HR 06/21/20 09:00 Miscellaenous Nursing Order [RC] DAILY 06/21/20 09:15 Patient Own Med [Patient Own Medication] 1 each PO DAILY 06/21/20 15:11 BRAIN WO [MRI] Stat 06/21/20 15:32 Telemetry- [RC] Q4HR Subjective - Subjective Patient Reports: Resting Comfortably Objective Vital Signs: Vital Signs - 24 hr 06/20/20 06/20/20 06/20/20 18:00 19:00 20:00 Temperature Heart Rate [ 101 H 93 Monitoring electrodes] Respiratory 23 20 20 Rate Blood Pressure 144/77 H 131/76 H 131/75 H [Left Brachial artery] O2 Saturation 95 96 06/20/20 06/20/20 06/20/20 21:00 22:00 23:00 Temperature Heart Rate [ 100 106 H 107 H Monitoring electrodes] Respiratory 25 H 25 H 24 Rate Blood Pressure 135/91 H 138/73 H 129/80 [Left Brachial artery] O2 Saturation 97 95 96 06/21/20 06/21/20 06/21/20 00:00 01:00 02:00 Temperature 36.2 C L 36.9 C Heart Rate [ 99 100 99 Monitoring electrodes] Respiratory 22 22 24 Rate Blood Pressure 143/84 H 137/72 H 129/78 [Left Brachial artery] O2 Saturation 94 99 96 06/21/20 06/21/20 06/21/20 03:00 04:00 05:00 Temperature Heart Rate [ 96 77 96 Monitoring electrodes] Respiratory 20 21 20 Rate Blood Pressure 144/84 H 135/80 H 136/78 H [Left Brachial artery] O2 Saturation 95 96 96 06/21/20 06/21/20 06/21/20 06:00 07:00 08:00 Temperature 36.8 C Heart Rate [ 99 99 97 Monitoring electrodes] Respiratory 19 20 25 H Rate Blood Pressure 152/90 H 142/77 H 140/81 H [Left Brachial artery] O2 Saturation 95 96 94 06/21/20 06/21/20 06/21/20 09:00 10:00 11:00 Temperature Heart Rate [ 99 106 H 107 H Monitoring electrodes] Respiratory 22 17 19 Rate Blood Pressure 141/80 H 143/77 H 130/66 [Left Brachial artery] O2 Saturation 94 94 06/21/20 06/21/20 06/21/20 12:00 14:27 15:38 Temperature 36.8 C 36.9 C Heart Rate [ 113 H 109 H 116 H Monitoring electrodes] Respiratory 24 20 22 Rate Blood Pressure 150/72 H 152/76 H 159/77 H [Left Brachial artery] O2 Saturation 95 95 97 Oxygen O2 Source Room air I&O (Last 24 Hrs): Intake and Output Totals x24h 06/19/20 06/20/20 06/21/20 23:59 23:59 23:59 Intake Total 3240 2985.000 Output Total 400 600 Balance 2840 2385.000 General: Alert HEENT: Atraumatic, EOMI, Other (No pharyngeal redness or swelling) Neck: Supple, No JVD Neuro: Alert, Disoriented Cardiovascular: Regular rate, No murmurs Respiratory: No respiratory distress, Breath sounds nml Abdomen: Normal bowel sounds, Soft Extremities: No edema - Results Results: Laboratory Results WBC 15.8 x10^3/uL (4.8-10.8) H 06/21/20 04:35 RBC 4.64 10^6/uL (4.70-6.10) L 06/21/20 04:35 Hgb 14.0 g/dL (14.0-18.0) 06/21/20 04:35 Hct 44.8 % (42.0-52.0) 06/21/20 04:35 MCV 96.6 fL (80.0-94.0) H 06/21/20 04:35 MCH 30.2 pg (27.0-31.0) 06/21/20 04:35 MCHC 31.3 g/dL (32.0-36.0) L 06/21/20 04:35 RDW 13.7 % (12.0-15.0) 06/21/20 04:35 Plt Count 250 10^3/uL (130-450) 06/21/20 04:35 MPV 9.2 fL (7.4-11.4) 06/21/20 04:35 Neut # (Auto) 14.0 10^3/uL (1.5-6.6) H 06/21/20 04:35 Lymph # (Auto) 1.2 10^3/uL (1.5-3.5) L 06/21/20 04:35 [place] # (Auto) 0.2 10^3/uL (0.0-1.0) 06/21/20 04:35 Eos # (Auto) 0.1 10^3/uL (0.0-0.7) 06/21/20 04:35 Baso # (Auto) 0.0 10^3/uL (0.0-0.1) 06/21/20 04:35 Absolute Nucleated RBC 0.00 x10^3/uL 06/21/20 04:35 Total Counted 100 06/20/20 12:15 Band Neuts % (Manual) 3 % (0-10) 06/20/20 12:15 Reactive Lymphs % (Man) 44 % 06/20/20 12:15 Abnorm Lymph % (Manual) 0 % 06/20/20 12:15 Nucleated RBC % 0.0 /100WBC 06/21/20 04:35 Neutrophils # (Manual) 1.2 10^3/uL (1.5-6.6) L 06/20/20 12:15 Lymphocytes # (Manual) 4.2 10^3/uL (1.5-3.5) H 06/20/20 12:15 Monocytes # (Manual) 0.5 10^3/uL (0.0-1.0) 06/20/20 12:15 Eosinophils # (Manual) 0.0 10^3/uL (0-0.7) 06/20/20 12:15 Basophils # (Manual) 0.0 10^3/uL (0-0.1) 06/20/20 12:15 Differential Comment MANUAL DIFFERENTIAL 06/20/20 12:15 Manual Slide Review Indicated 06/20/20 12:15 RBC Morph Micro Appear 1+ ANISOCYTOSIS (NORMAL) 06/20/20 12:15 Sodium 139 mmol/L (135-145) 06/21/20 04:35 Potassium 4.1 mmol/L (3.5-5.0) 06/21/20 04:35 Chloride 109 mmol/L (101-111) 06/21/20 04:35 Carbon Dioxide 21 mmol/L (21-32) 06/21/20 04:35 Anion Gap 9.0 (6-13) 06/21/20 04:35 BUN 18 mg/dL (6-20) 06/21/20 04:35 Creatinine 0.8 mg/dL (0.6-1.2) 06/21/20 04:35 Estimated GFR (MDRD) 102 (>89) 06/21/20 04:35 Glucose 161 mg/dL (70-100) H 06/21/20 04:35 POC Whole Bld Glucose 194 mg/dL (70 - 100) H 06/21/20 16:52 Calcium 8.7 mg/dL (8.5-10.3) 06/21/20 04:35 Magnesium 1.9 mg/dL (1.7-2.8) 06/21/20 04:35 TSH 2.04 uIU/mL (0.34-5.60) 06/20/20 13:15 Urine Color YELLOW 06/20/20 18:08 Urine Clarity HAZY (CLEAR) 06/20/20 18:08 Urine pH 5.5 PH (5.0-7.5) 06/20/20 18:08 Ur Specific [place] >=1.030 (1.002-1.030) H 06/20/20 18:08 Urine Protein 30 mg/dL (NEGATIVE) H 06/20/20 18:08 Urine Glucose (UA) NEGATIVE mg/dL (NEGATIVE) 06/20/20 18:08 Urine Ketones NEGATIVE mg/dL (NEGATIVE) 06/20/20 18:08 Urine Occult Blood NEGATIVE (NEGATIVE) 06/20/20 18:08 Urine Nitrite NEGATIVE (NEGATIVE) 06/20/20 18:08 Urine Bilirubin NEGATIVE (NEGATIVE) 06/20/20 18:08 Urine Urobilinogen 0.2 (NORMAL) E.U./dL (NORMAL) 06/20/20 18:08 Ur Leukocyte Esterase NEGATIVE (NEGATIVE) 06/20/20 18:08 Urine RBC 0-5 /HPF (0-5) 06/20/20 18:08 Urine WBC 4-5 /HPF (0-3) 06/20/20 18:08 Ur Squamous Epith Cells RARE Squamous (<= Few) 06/20/20 18:08 Urine Bacteria Rare /HPF (None Seen) 06/20/20 18:08 Urine Mucus Moderate Strands 06/20/20 18:08 Urine Sperm PRESENT 06/20/20 18:08 Ur Microscopic Review INDICATED 06/20/20 18:08 Urine Culture Comments NOT INDICATED 06/20/20 18:08 Nasal Screen MRSA (PCR) NEGATIVE (NEGATIVE) 06/20/20 14:08 Salicylates < 6.0 mg/dL 06/20/20 13:15 Urine Opiates Screen NEGATIVE (NEGATIVE) 06/20/20 18:08 Ur Oxycodone Screen NEGATIVE (NEGATIVE) 06/20/20 18:08 Urine Methadone Screen NEGATIVE (NEGATIVE) 06/20/20 18:08 Ur Propoxyphene Screen NEGATIVE (NEGATIVE) 06/20/20 18:08 Acetaminophen < 10 ug/mL (10-30) L 06/20/20 13:15 Ur Barbiturates Screen NEGATIVE (NEGATIVE) 06/20/20 18:08 Ur Tricyclics Screen NEGATIVE (NEGATIVE) 06/20/20 18:08 Ur Phencyclidine Scrn NEGATIVE (NEGATIVE) 06/20/20 18:08 Ur Amphetamine Screen POSITIVE (NEGATIVE) H 06/20/20 18:08 U Methamphetamines Scrn POSITIVE (NEGATIVE) H 06/20/20 18:08 U Benzodiazepines Scrn NEGATIVE (NEGATIVE) 06/20/20 18:08 Urine Cocaine Screen NEGATIVE (NEGATIVE) 06/20/20 18:08 U Cannabinoids Screen NEGATIVE (NEGATIVE) 06/20/20 18:08 Ethyl Alcohol < 5.0 mg/dL 06/20/20 13:15
--- NOTE | 2020-06-21 19:25 | MRI Report ---
PROCEDURE: Brain W/O INDICATIONS: anoxic brain damage TECHNIQUE: Noncontrast axial T1 spin echo, axial T2 fast spin echo, sagittal and axial FLAIR, coronal T2 fast sp in echo, axial gradient echo, axial diffusion and ADC through the brain. COMPARISON: None. FINDINGS: Image quality: Related by patient motion artifact.. CSF Spaces: Basal cisterns are patent. No extra-axial fluid collections. Ventricles are normal in size and shape. Brain: No intracranial masses or hemorrhage. Mueller/white matter interface is normal. Brainstem appe ars normal. Diffusion-weighted images demonstrate no acute ischemic insult. No chronic ischemic ins ults. Normal intravascular flow voids are present. Skull and face: Calvarium has normal marrow signal. Orbits appear normal. Sinuses: Sinuses and mastoids are clear. IMPRESSION: 1. No acute intracranial disease process. 2. No areas of acute infarct. 3. No evidence of hypoxic/anoxic injury. Reviewed by: Shannen Peacock MD, PhD on 06/21/2020 7:23 PM PDT Approved by: Shannen Peacock MD, PhD on 06/21/2020 7:23 PM PDT Station ID: [id number]
[2020-06-22] MEDS: methylPREDNISolone SUCCINATE 40 MG/ML VIAL IVP SCH ×2 (05:49→11:59)
[2020-06-22] MEDS: SODIUM CHLORIDE FLUSH 0.9% 10 ML SYRINGE IVP PRN (05:49)
--- NOTE | 2020-06-22 07:50 | Discharge Plan ---
Discharge Plan Problem Reviewed?: Yes Disposition: Home, Self Care Condition: Stable Prescriptions: EPINEPHrine [Epinephrine] 0.3 mg IJ DAILY PRN #1 auto.injct PRN Reason: Anaphylaxis Methylprednisolone [Medrol Dose Pack] 1 each PO .PACKAGEINSTRUCTIONS 6 Days #1 each Diet: Regular Activity Restrictions: Activity as Tolerated Shower Restrictions: No Driving Restrictions: Yes (You must be cleared to resume driving by your PCP.) Instruction Topics: Epinephrine injection Auto-injector, ED Anaphylaxis General Health Concerns: You were admitted after having anaphylactic shock and you were unresponsive due to shock. This occurred after a bee sting and a delayed EpiPen administration. Because your memory was affected, you underwent brain MRI to evaluate for stroke or anoxic brain damage. The brain MRI showed neither. Your memory will return slowly. You need to see your PCP for follow-up of this hospitalization, and also to be cleared to resume driving a vehicle or working with heavy machinery, because of the memory problem. Plan of Treatment: You are being discharged to take a tapering down schedule of steroids (Medrol Dosepak). Also, a new EpiPen has been prescribed for you. The prescriptions were electronically sent to your [facility] pharmacy in [place]. Care Goals: Improvement in symptoms and stabilization are the goals. Assessment: The patient and /significant other understand, and written reminders were supplied at discharge. Additional Instructions or Follow Up instructions: If you have new or worsening symptoms, call your PCP for advice or come to the ER. If you get the start of an anaphylactic reaction again, administer your EpiPen immediately! No Smoking: If you smoke, Please STOP! Call for help. Follow-up with: JENNY CONTRERAS [Primary Care Provider] -
[2020-06-22 10:06] VITALS: BP 133/89
[2020-06-22] MEDS: DEXTROAMPHETAMINE PO SCH (10:57)
[2020-06-22] MEDS: AMPHETAMINE PO SCH (10:57)
--- NOTE | 2020-06-22 10:57 | DISCHARGE SUMMARY ---
Discharge Summary Admit Date: 06/20/20 Discharge Date: 06/22/20 Discharging Provider: Dr Felix Ramírez Primary Care Provider: Dr Karey Jeffery Code Status: Attempt Resuscitation Condition at Discharge: Stable Discharge Disposition: 01 Home, Self Care - HPI History of Present Illness: This is a 49-year-old white male with a history of ADHD on Adderall, possibly also takes Bupropion. He was at a recycling center and got bit by a bee and failed to use his EpiPen because he was afraid to do so. He drove himself to the emergency room and upon entering registration, collapsed to the floor. He was brought into the ER and blood pressure was 70 systolic, O2 saturation was 70% and a staff member in the ER noticed that he had an EpiPen in his lap. His exam was consistent with an anaphylactic reaction with airway closure. The EpiPen was administered. The RT described him having agonal respirations and was cyanotic and had severe airway obstruction. An oral airway was inserted without difficulty and he received 5 L oxygen by nonrebreather mask and regained spontaneous respirations. He also got IV Solu-Medrol, IV Benadryl and IV fluids were started in the ER. He is barely being placed in Observation status in the ICU, to ensure that he has full recovery from this anaphylactic reaction. - HOSPITAL COURSE Hospital Course: (1) Anaphylactic shock His blood pressure was documented as low as 70mmHg but improved to 120mmhg and higher after the EpiPen, Solu-Medrol and IV fluids were started. He was kept on Solu-Medrol 40 mg IV q6h while here. There were no further drops in blood pressure this hospitalization. (2) Anaphylactic reaction to bee sting It was ordered that he watch a video on how to administer EpiPen, his /significant other watched it as well. Everyone reiterated the importance of urgent management if this should happen to him again in the future. On the second day, his voice was still not normal and there was some hand swelling. He was continued on IV Solu-Medrol. At the time of discharge, he was prescribed a Medrol Dosepak with taper schedule. (3) Memory deficit On his second day here, the patient's /significant other noticed many gaps in his short-term memory and he did not recognize his provider from seeing him earlier that day. No focal motor deficit was present on exam, and he is able to ambulate in the hallway. He was transitioned from observation status to inpatient status in order to evaluate for stroke or anoxic brain injury. Brain MRI was done which did not show stroke or changes of anoxic brain damage. By the third day here, he had regained more of his short-term memory and passed a bedside exam. At discharge, instructions were that he may not drive a vehicle or operate machinery, until he is cleared to do so by his PCP, and should see his PCP in the next several days. (4) CHEYANNE Elevated creatinine of 1.3 found at admission, but with overnight hydration this resolved and creatinine was 0.8. He was continued on IV hydration and he was taking adequate p.o. fluids by the second day. - ALLERGIES Allergies/Adverse Reactions: Allergies Allergy/AdvReac Type Severity Reaction Status Date / Time ampicillin Allergy Rash Verified 09/28/18 19:39 bee venom protein (honey bee) Allergy Anaphylaxis Verified 06/20/20 12:43 - MEDICATIONS Home Medications: Ambulatory Orders Medication Instructions Recorded Confirmed Dextroamphetamine/Amphetamine 12/04/17 [Adderall 20 mg Tablet] buPROPion [Wellbutrin Sr] 12/04/17 EPINEPHrine [Epinephrine] 0.3 mg IJ DAILY PRN #1 auto.injct 06/22/20 Methylprednisolone [Medrol Dose 1 each PO .PACKAGEINSTRUCTIONS 6 06/22/20 Pack] Days #1 each - PHYSICAL EXAM AT DISCHARGE General Appearance: positive: No acute distress, Alert Eyes Bilateral: positive: Normal inspection, EOMI ENT: positive: ENT inspection nml, Pharynx nml Neck: positive: Nml inspection, No JVD Respiratory: positive: Chest non-tender, No respiratory distress, Breath sounds nml Cardiovascular: positive: Regular rate & rhythm, No murmur Abdomen: positive: Non-tender, No distention Skin: positive: No rash, Warm, Dry Extremities: positive: No pedal edema, Other (No hand edema) Neurologic/Psychiatric: positive: Oriented x3 - LABS Result Diagrams: 06/21/20 04:35 06/21/20 04:35 - DIAGNOSTIC IMAGING Diagnostic Imaging Results: Final report reviewed - FOLLOW UP Follow Up: Patient should see his PCP in the next week. - TIME SPENT Time Spent in Discharge (Minutes): 30
[2020-06-22] MEDS: SODIUM CHLORIDE FLUSH 0.9% 10 ML SYRINGE IVP SCH (11:59)
== END 2020-06-22 12:50 | disposition home or self-care (01) | DRG 916 ==
LOC: ED 12:00 → ICU 14:08 → OBSVTOIN 15:10
PROVIDERS: ADMIT Internal Medicine; ATTEND Internal Medicine
DX: T78.2XXA Anaphylactic shock, unspecified, initial encounter (principal); N17.9 Acute kidney failure, unspecified; T63.441A Toxic effect of venom of bees, accidental (unintentional), initial encounter; F17.200 Nicotine dependence, unspecified, uncomplicated; R41.82 Altered mental status, unspecified; Y92.89 Other specified places as the place of occurrence of the external cause; F90.9 Attention-deficit hyperactivity disorder, unspecified type; R41.3 Other amnesia
CPT/HCPCS: 36415; 70551; 80048; 80306; 80307; 80320; 80329; 81001; 83735; 84443; 85025; 87150; 94640; 96361; 96365; 96366; 96372; 96375; 96376; 99285; 99291; G0378; J1200; 81003; 87086

== ENCOUNTER 2020-10-27 22:19 | Emergency (ER) | payer OTHER ==
[2020-10-27 22:37] VITALS: BP 170/98
--- NOTE | 2020-10-27 22:53 | ED Physician Documentation ---
History of Present Illness - Stated complaint Stated Complaint: TOOTH PX - Chief complaint Chief Complaint: Heent - History obtained from History obtained from: Patient - Additonal information Additional information: 49-year-old man with past medical history of dental caries presents with tooth 26 pain that has been ongoing for months, worsening acutely this evening. Throbbing constant aching nonradiating associated with mild surrounding swelling and gingival irritation, with a dental carry at tooth 26. Patient is planning on following up with a dentist this week but was unable to sleep this evening due to pain. Denies fevers, hardening of the underlying mandible, shortness of breath or throat pain. Review of Systems Constitutional: denies: Fever, Chills Throat: reports: Dental pain / toothache. denies: Sore throat Respiratory: denies: Dyspnea PD PAST MEDICAL HISTORY - Past Medical History Past Medical History: No Cardiovascular: None Respiratory: None Neuro: None Endocrine/Autoimmune: None GI: None : None HEENT: None Psych: None Musculoskeletal: None Derm: None - Past Surgical History Past Surgical History: Yes General: Other Ortho: Shoulder arthroplasty HEENT: Rhinoplasty - Present Medications Home Medications: Ambulatory Orders Medication Instructions Recorded Confirmed Dextroamphetamine/Amphetamine 12/04/17 [Adderall 20 mg Tablet] buPROPion [Wellbutrin Sr] 12/04/17 EPINEPHrine [Epinephrine] 0.3 mg IJ DAILY PRN #1 auto.injct 06/22/20 Methylprednisolone [Medrol Dose 1 each PO .PACKAGEINSTRUCTIONS 6 06/22/20 Pack] Days #1 each Amox/Clav 875/125 [Augmentin] 1 each PO Q12H 7 Days #14 tablet 10/27/20 - Allergies Allergies/Adverse Reactions: Allergies Allergy/AdvReac Type Severity Reaction Status Date / Time ampicillin Allergy Rash Verified 09/28/18 19:39 bee venom protein (honey bee) Allergy Anaphylaxis Verified 06/20/20 12:43 - Social History Does the pt smoke?: Yes Smoking Status: Current every day smoker Does the pt drink ETOH?: Yes Does the pt have substance abuse?: No - Immunizations Immunizations are current?: No Immunizations: TDAP >10years/unknown - POLST Patient has POLST: No PD ED PE NORMAL - Vitals Vital signs reviewed: Yes - General General: Alert and oriented X 3, No acute distress - HEENT HEENT: Atraumatic, PERRL, EOMI, Moist mucous membranes, Pharynx benign (Tolerating secretions. No submandibular swelling. No trismus.), Other (Poor Dentition. multiple missing teeth. tooth 26 with erosion and significant eva with surrounding tenderness and erythema. ) - Neck Neck: Supple, no meningeal sign - Neuro Neuro: Alert and oriented X 3 - Psych Psych: Normal mood, Normal affect Results - Vitals Vitals: Vital Signs - 24 hr 10/27/20 10/27/20 22:20 22:37 Temperature 36.7 C 36.7 C Heart Rate 114 H 114 H Respiratory 20 20 Rate Blood Pressure 200/84 H 170/98 H O2 Saturation 97 97 Oxygen O2 Source Room air Procedures - Regional nerve block Nerve block site: Supraperiosteal (tooth 26) Nerve block anesthesia: Lidocaine 2% Nerve block aftercare: Excellent anesthesia, Patient tolerated well, No complications PD MEDICAL DECISION MAKING - ED course ED course: 49-year-old man presents with dental pain and swelling over the past several months, worsening acutely this evening. Supraperiosteal nerve block completed without complication and with improvement in symptoms. Return precautions given. Patient will take Augmentin and follow-up with dentist. Departure - Departure Disposition: 01 Home, Self Care Clinical Impression: Pain due to dental caries Condition: Good Instructions: ED Tooth Pain Prescriptions: Amox/Clav 875/125 [Augmentin] 1 each PO Q12H 7 Days #14 tablet Comments: You have been seen in the emergency department for dental pain. Take your antibiotics as prescribed. Return to the ED if you have any new or worsening symptoms or if you have any breathing issues. Call for a dentist appointment tomorrow. Gabriel Hollis DDDmitry Facebook [phone]) General Dentistry [phone], [place]
== END 2020-10-27 22:54 | disposition home or self-care (01) ==
LOC: ED 22:19
DX: K02.9 Dental caries, unspecified (principal); K08.89 Other specified disorders of teeth and supporting structures; F17.200 Nicotine dependence, unspecified, uncomplicated
CPT/HCPCS: 64400; 64450

== ENCOUNTER 2021-04-28 13:21 | Emergency (ER) | payer OTHER ==
[2021-04-28 13:34] VITALS: BP 160/90
--- NOTE | 2021-04-28 14:13 | XRAY Report ---
PROCEDURE: Shoulder 3 View RT INDICATIONS: R shoulder pain TECHNIQUE: 3 views of the shoulder were acquired. COMPARISON: None. FINDINGS: Bones: No fractures or dislocations. No suspicious bony lesions. Visualized ribs appear intact. Mi ld glenohumeral joint osteoarthritis. Probable prior surgical resection of distal clavicle noted. Soft tissues: No suspicious soft tissue calcifications. IMPRESSION: 1. Glenohumeral joint osteoarthritis. 2. No fracture. No acute osseous lesion. If there persistent symptoms or continued clinical concern f or pathology, then repeat plain film radiographs (7-10 days) or advanced imaging (CT, MR, bone scan) should be considered for further evaluation. Reviewed by: Shannen Peacock MD, PhD on 04/28/2021 2:12 PM PDT Approved by: Shannen Peacock MD, PhD on 04/28/2021 2:12 PM PDT Station ID: [id number]
[2021-04-28] MEDS ORDERED: KETOROLAC 60 MG/2 ML VIAL IM STA (14:14)
--- NOTE | 2021-04-28 14:25 | ED Physician Documentation ---
History of Present Illness - Stated complaint Stated Complaint: R SHOULDER PX - Chief complaint Chief Complaint: Ext Problem - History obtained from History obtained from: Patient - History of Present Illness Timing: How many days ago (3) Pain level max: 7 Pain level now: 5 - Additonal information Additional information: 50-year-old male with chronic right shoulder pain. Worsening over the past 4 to 5 days. Does not recall any injury. Worse with movement, better with rest. No numbness or tingling. The pain starts in the posterior shoulder and near the scapula. No redness. No swelling. No rash. Review of Systems Constitutional: denies: Fever, Chills GI: denies: Nausea, Vomiting Musculoskeletal: denies: Neck pain, Back pain Neurologic: denies: Focal weakness, Numbness, Headache PD PAST MEDICAL HISTORY - Past Medical History Cardiovascular: None Respiratory: None Neuro: None Endocrine/Autoimmune: None GI: None : None HEENT: None Psych: None Musculoskeletal: None Derm: None - Past Surgical History Past Surgical History: Yes General: Other Ortho: Shoulder arthroplasty HEENT: Rhinoplasty - Present Medications Home Medications: Ambulatory Orders Medication Instructions Recorded Confirmed Dextroamphetamine/Amphetamine 12/04/17 [Adderall 20 mg Tablet] buPROPion [Wellbutrin Sr] 12/04/17 EPINEPHrine [Epinephrine] 0.3 mg IJ DAILY PRN #1 auto.injct 06/22/20 methylPREDNISolone [Medrol Dose 1 each PO .PACKAGEINSTRUCTIONS 6 06/22/20 Pack] Days #1 each Amox/Clav 875/125 [Augmentin] 1 each PO Q12H 7 Days #14 tablet 10/27/20 HYDROcod/ACETAM 5/325 [[place] 5/325] 1 - 2 ea PO Q6H PRN #14 tablet 04/28/21 Meloxicam [Mobic] 7.5 mg PO BID PRN #20 tablet 04/28/21 methocarbamoL [Robaxin] 500 mg PO Q6H PRN #20 tablet 04/28/21 - Allergies Allergies/Adverse Reactions: Allergies Allergy/AdvReac Type Severity Reaction Status Date / Time ampicillin Allergy Rash Verified 04/28/21 13:32 bee venom protein (honey bee) Allergy Anaphylaxis Verified 04/28/21 13:32 - Social History Does the pt smoke?: Yes Smoking Status: Current every day smoker Does the pt drink ETOH?: Yes Does the pt have substance abuse?: No - Immunizations Immunizations are current?: No Immunizations: TDAP >10years/unknown - POLST Patient has POLST: No PD ED PE NORMAL - Vitals Vital signs reviewed: Yes - General General: Alert and oriented X 3, No acute distress - HEENT HEENT: PERRL - Neck Neck: Supple, no meningeal sign, No bony TTP - Cardiac Cardiac: RRR - Respiratory Respiratory: No respiratory distress, Clear bilaterally - Derm Derm: Warm and dry - Extremities Extremities: Other (Tender to palpation over the right trapezial ridge and posterior aspect of the glenohumeral joint. Full range of motion of the shou lder with passive range of motion, limited with active. Neurovascular intact. No skin changes. No redness or swelling. No deformity.) - Neuro Neuro: Alert and oriented X 3, No motor deficit, No sensory deficit - Psych Psych: Normal mood, Normal affect Results - Vitals Vitals: Vital Signs - 24 hr 04/28/21 13:32 Temperature 36.5 C Heart Rate 90 Respiratory 16 Rate Blood Pressure 160/90 H O2 Saturation 99 Oxygen O2 Source Room air - Rads (name of study) R shoulder xray Radiology: Final report received, EMP read contemporaneously, See rad report (Glenohumeral joint osteoarthritis. No acute abnormalities) PD MEDICAL DECISION MAKING - ED course Complexity details: reviewed results, re-evaluated patient, considered differential, d/w patient ED course: 50-year-old male with right shoulder pain. Unclear etiology. Appears to be an acute exacerbation of a chronic issue. Will place on pain medication muscle relaxants for home. Continue gentle stretching as well. Patient counseled regarding signs and symptoms for which I believe and urgent re-evaluation would be necessary. Patient with good understanding of and agreement to plan and is comfortable going home at this time This document was made in part using voice recognition software. While efforts are made to proofread this document, sound alike and grammatical errors may occur. Departure - Departure Disposition: 01 Home, Self Care Clinical Impression: Muscle spasm of shoulder region Condition: Good Instructions: ED Shoulder Pain [facility] Follow-Up: JENNY CONTRERAS [Primary Care Provider] - Within 1 week Prescriptions: Meloxicam [Mobic] 7.5 mg PO BID PRN #20 tablet PRN Reason: Pain HYDROcod/ACETAM 5/325 [[place] 5/325] 1 - 2 ea PO Q6H PRN #14 tablet PRN Reason: Pain methocarbamoL [Robaxin] 500 mg PO Q6H PRN #20 tablet PRN Reason: muscle spasm Comments: Please follow-up with your doctor for further care. Continue to gently range your shoulder and neck at home to help break up the spasm. Return if you worsen. I am prescribing a short course of narcotic pain medication for you. These are potentially dangerous and addictive medications that should be used carefully. These medications may constipate you. Take an mwca-biv-oyxrara stool softener (docusate) twice daily with plenty of water while taking these medications. If you go 24 hours without a bowel movement, take safp-[id number] miralax, per package instructions. Do not drink or drive while taking these medications. If you received narcotic or sedating medications while in the emergency department, do not drive for 24 hours. Store this medication in a safe, secure place and out of reach of children. It is a violation of federal law to give or sell this medication to another person or to use in a manner other than prescribed. The ED will not refill narcotic prescriptions, including prescriptions lost or stolen. To dispose of unwanted medications: 1. [facility] at [address] in [place] has a medication drop box. They accept prescription medications (in pill form) Wednesday through Wednesday 9:00 a.m. to 5:00 p.m. 2. [facility] [employer] accepts prescription medications (in pill form only) for disposal year round. Call for more information. 3. Contact the [facility] for the next [facility] sponsored prescription drug collection event. , [phone], or [phone]; Discharge Date/Time: 04/28/21 15:09
== END 2021-04-28 15:09 | disposition home or self-care (01) ==
LOC: ED 13:21
DX: M62.838 Other muscle spasm (principal); F17.200 Nicotine dependence, unspecified, uncomplicated
CPT/HCPCS: 96372; 99283; 99284

== ENCOUNTER 2023-05-16 18:39 | Emergency (ER) | payer OTHER ==
[2023-05-16] MEDS ORDERED: HYDROmorphone 1 MG/ML CARPUJECT IVP STA ×2 (18:52→21:14)
--- NOTE | 2023-05-16 18:53 | ED Physician Documentation ---
PD HPI ABD PAIN - Stated complaint Stated Complaint: STOMACH PX - Chief complaint Chief Complaint: Abd Pain - History obtained from History obtained from: Patient - Additional information Additional information: 52-year-old gentleman with history of umbilical and right inguinal hernia repairs. The umbilical hernia repair was complicated by mesh infection. These were a few years ago. The last couple of years he has had intermittent pain in his left groin concerning for left inguinal hernia. Its been particular bad today. It is associated with a few watery bowel movements today and one episode of vomiting. No fevers. No blood in the stools. PD PAST MEDICAL HISTORY - Past Medical History Cardiovascular: None Respiratory: None Neuro: None Endocrine/Autoimmune: None GI: None : None HEENT: None Psych: None Musculoskeletal: None Derm: None - Past Surgical History Past Surgical History: Yes General: Other Ortho: Shoulder arthroplasty HEENT: Rhinoplasty - Present Medications Home Medications: Ambulatory Orders Medication Instructions Recorded Confirmed Dextroamphetamine/Amphetamine 10 mg PO DAILY 05/16/23 05/16/23 [Adderall 10 mg Tablet] HYDROcod/ACETAM 5/325 [Weinert 5/325] 1 - 2 tab PO Q6H PRN #7 tablet 05/16/23 buPROPion HCL [Wellbutrin Xl] 300 mg PO DAILY 05/16/23 05/16/23 - Allergies Allergies/Adverse Reactions: Allergies Allergy/AdvReac Type Severity Reaction Status Date / Time ampicillin Allergy Rash Verified 05/16/23 18:43 bee venom protein (honey bee) Allergy Anaphylaxis Verified 05/16/23 18:43 - Social History Does the pt smoke?: Yes Smoking Status: Current every day smoker Does the pt drink ETOH?: Yes Does the pt have substance abuse?: No - Immunizations Immunizations are current?: No Immunizations: TDAP >10years/unknown, Other immun not current - POLST Patient has POLST: No PD ED PE NORMAL - Vitals Vital signs reviewed: Yes - General General: Alert and oriented X 3, Other (He appears slightly uncomfortable and restless.) - Abdomen Abdomen: Normal bowel sounds, Soft, Non tender - Male Male : Other (Testicles are nontender with normal lie. I am unable to appreciate any hernia mass in the left inguinal area. No swelling. No redness. No skin changes. No tenderness in the inguinal ligament or anywhere in that area. That said he points there as the site of pain.) - Neuro Neuro: Alert and oriented X 3, Normal speech Results - Vitals Vitals: Vital Signs - 24 hr 05/16/23 05/16/23 05/16/23 18:43 19:45 21:00 Temperature 36.5 C 36.8 C Heart Rate 96 89 77 Respiratory 16 18 18 Rate Blood Pressure 150/83 H 130/81 H 158/110 H O2 Saturation 97 97 100 05/16/23 21:33 Temperature Heart Rate 79 Respiratory 16 Rate Blood Pressure 129/83 H O2 Saturation 96 Oxygen O2 Source Room air - Labs Labs: Laboratory Tests 05/16/23 05/16/23 05/16/23 07:10 07:10 20:10 WBC 8.2 RBC 4.29 L Hgb 12.8 L Hct 39.6 L MCV 92.3 MCH 29.8 MCHC 32.3 RDW 13.6 Plt Count 231 MPV 9.1 Neut # (Auto) 4.9 Lymph # (Auto) 2.3 Tift # (Auto) 0.8 Eos # (Auto) 0.2 Baso # (Auto) 0.0 Absolute Nucleated RBC 0.00 Nucleated RBC % 0.0 Sodium 139 Potassium 3.5 Chloride 105 Carbon Dioxide 28 Anion Gap 6.0 BUN 18 Creatinine 1.2 Estimated GFR (MDRD) 63 L Glucose 106 H Calcium 9.6 Total Bilirubin 0.6 AST 18 ALT 30 Alkaline Phosphatase 62 Total Protein 6.7 Albumin 4.1 Globulin 2.6 Albumin/Globulin Ratio 1.6 Urine Color YELLOW Urine Clarity CLEAR Urine pH 5.0 Ur Specific [place] >=1.030 H Urine Protein NEGATIVE Urine Glucose (UA) NEGATIVE Urine Ketones NEGATIVE Urine Occult Blood NEGATIVE Urine Nitrite NEGATIVE Urine Bilirubin NEGATIVE Urine Urobilinogen 0.2 (NORMAL) Ur Leukocyte Esterase NEGATIVE Ur Microscopic Review NOT INDICATED Urine Culture Comments NOT INDICATED Urine Opiates Screen NEGATIVE Ur Oxycodone Screen NEGATIVE Urine Methadone Screen NEGATIVE Ur Propoxyphene Screen NEGATIVE Ur Barbiturates Screen NEGATIVE Ur Tricyclics Screen NEGATIVE Ur Phencyclidine Scrn NEGATIVE Ur Amphetamine Screen POSITIVE H U Methamphetamines Scrn POSITIVE H U Benzodiazepines Scrn NEGATIVE Urine Cocaine Screen POSITIVE H U Cannabinoids Screen NEGATIVE - Rads (name of study) CT abdomen pelvis Relevant Findings:: Final report received, EMP independent interpretation of test PD Medical Decision Making - ED course ED course: 52-year-old gentleman presents with groin pain. He presumed hernia given his history of recurrent hernias. That said, there is no evidence of hernia mass on exam. Testicular examination is normal and he does not have testicular pain, he has persistent that it is more the inguinal lateral area. I am able to re produce it with internal and external rotation of the hip which could suggest a musculoskeletal etiology. There is no shingles rash. Work-up in the emergency department consisted of a CBC showing very mild normocytic anemia. CMP that was unremarkable. Urinalysis with high specific gravity but otherwise unremarkable. Urine toxicology was positive for methamphetamines and cocaine. This was dis cussed with the patient and he denied use of either. Note made that he was also positive for methamphetamines on prior drug screen a few years ago, he was negative for cocaine at that time. CT scan of the abdomen pelvis demonstrating suspect hepatic steatosis but no other pertinent positive findings. We will treat him for musculoskeletal pain pending follow-up. Departure - Departure Disposition: 01 Home, Self Care Clinical Impression: Groin pain Qualifiers: Laterality: left Qualified Code(s): R10.32 - Left lower quadrant pain Condition: Good Record reviewed to determine appropriate education?: Yes Instructions: ED Abdominal Pain Unkn Cause Male Prescriptions: HYDROcod/ACETAM 5/325 [Weinert 5/325] 1 - 2 tab PO Q6H PRN #7 tablet PRN Reason: Pain Comments: I sent your prescription electronically to [facility] pharmacy in [place]. As discussed, CT scan shows some fatty liver, but no abnormality near the left groin that would explain your pain. There is no hernia on the CT or on exam. And the increased pain with rotation of the hip would suggest a musculoskeletal etiology. Call your doctor to arrange a follow-up appointment, make the next available appointment. In the interim, return anytime if worse or if new symptoms develop. I am prescribing a short course of narcotic pain medication for you. These are potentially dangerous and addictive medications that should be used carefully. These medications may constipate you. Take an [id number] stool softener (docusate) twice daily with plenty of water while taking these medications. If you go 24 hours without a bowel movement, take [id number] miralax, per package instructions. Do not drink or drive while taking these medications. If you received narcotic or sedating medications while in the emergency department, do not drive for 24 hours. Store this medication in a safe, secure place and out of reach of children. It is a violation of federal law to give or sell this medication to another person or to use in a manner other than prescribed. The ED will not refill narcotic prescriptions, including prescriptions lost or stolen. To dispose of unwanted medications: 1. [facility] provides a drop box for medication in pill form only (no liquids) 8:00 am to 4:30 p.m. Wednesday-Wednesday in the lobby of the [facility], [address] [place] [address]. Empty pills into ziplock bag before disposal. Call [phone] for information. 2.[employer] is a free service available to all [facility] residents. Go to [email or web address] Note that many narcotic pain relievers also contain Tylenol/acetaminophen. Please ensure that your total dose of acetaminophen from all sources does not exceed 3 g (3000 mg) per day. Forms: PCP List, Activity restrictions
[2023-05-16 19:16] LABS: BASOPHILS % (AUTO) 0.4 %; EOSINOPHILS # (AUTO) 0.2 10^3/uL (0.0-0.7); EOSINOPHILS % (AUTO) 1.8 %; HCT - HEMATOCRIT 39.6 % (42.0-52.0); HGB - HEMOGLOBIN 12.8 g/dL (14.0-18.0); LYMPHOCYTES # (AUTO) 2.3 10^3/uL (1.5-3.5); LYMPHOCYTES % (AUTO) 27.7 %; MEAN CORPUSCULAR HEMOGLOBIN 29.8 pg (27.0-31.0); MEAN CORPUSCULAR HGB CONC 32.3 g/dL (32.0-36.0); MEAN CORPUSCULAR VOLUME 92.3 fL (80.0-94.0); MEAN PLATELET VOLUME 9.1 fL (7.4-11.4); MONOCYTES # (AUTO) 0.8 10^3/uL (0.0-1.0); MONOCYTES % (AUTO) 9.9 %; NEUTROPHILS # (AUTO) 4.9 10^3/uL (1.5-6.6); NEUTROPHILS % (AUTO) 59.7 %; PLT - PLATELET COUNT 231 10^3/uL (130-450); RED BLOOD COUNT 4.29 10^6/uL (4.70-6.10); RED CELL DISTRIBUTION WIDTH 13.6 % (12.0-15.0); WHITE BLOOD COUNT 8.2 x10^3/uL (4.8-10.8)
[2023-05-16 19:32] LABS: ALBUMIN 4.1 g/dL (3.2-5.5); ALBUMIN/GLOBULIN RATIO 1.6 (1.0-2.2); BILIRUBIN,TOTAL 0.6 mg/dL (0.2-1.0); CALCIUM 9.6 mg/dL (8.5-10.3); CREATININE 1.2 mg/dL (0.6-1.3); POTASSIUM 3.5 mmol/L (3.5-4.5); TOTAL PROTEIN 6.7 g/dL (6.4-8.9)
[2023-05-16 20:14] LABS: MUDS CUTOFF CONCENTRATIONS CUTOFF CONC BELOW:
[2023-05-16 20:16] LABS: BILIRUBIN,URINE NEGATIVE (NEGATIVE); GLUCOSE, URINE (UA) NEGATIVE (NEGATIVE); KETONES,URINE (UA) NEGATIVE (NEGATIVE); LEUKOCYTE ESTERASE, URINE NEGATIVE (NEGATIVE); NITRITE,URINE NEGATIVE (NEGATIVE); OCCULT BLOOD,URINE NEGATIVE (NEGATIVE); PROTEIN,URINE NEGATIVE (NEGATIVE); UROBILINOGEN,URINE 0.2 (NORMAL) E.U./dL (NORMAL)
[2023-05-16] MEDS ORDERED: iohexoL-300 100 ML VIAL IVP ONE (20:16)
[2023-05-16 20:18] LABS: CLARITY,URINE CLEAR (CLEAR)
[2023-05-16 20:28] LABS: AMPHETAMINE SCREEN,URINE POSITIVE (NEGATIVE); BARBITURATE SCREEN,UR NEGATIVE (NEGATIVE); BENZODIAZEPINES SCREEN, URINE NEGATIVE (NEGATIVE); COCAINE SCREEN URINE POSITIVE (NEGATIVE); METHADONE SCREEN, URINE NEGATIVE (NEGATIVE); METHAMPHETAMINES SCREEN, URINE POSITIVE (NEGATIVE); OPIATE SCREEN, URINE NEGATIVE (NEGATIVE); OXYCODONE SCREEN, URINE NEGATIVE (NEGATIVE); PROPOXYPHENE SCREEN, URINE NEGATIVE (NEGATIVE); THC CANNABINOID SCREEN, URINE NEGATIVE (NEGATIVE); TRICYCLIC ANTIDEPRESSANT,URINE NEGATIVE (NEGATIVE)
[2023-05-16] MEDS ORDERED: KETOROLAC 15 MG/ML VIAL IVP STA (21:14)
--- NOTE | 2023-05-16 21:35 | CT Report ---
PROCEDURE: ABDOMEN/PELVIS W INDICATIONS: iv only, llq pain CONTRAST: 100 ML OMNI 300 TECHNIQUE: After the administration of intravenous contrast, 5 mm thick sections acquired from the diaphragms to the symphysis. 5 mm thick coronal and sagittal reformats were acquired. For radiation dose reducti on, the following was used: automated exposure control, adjustment of mA and/or kV according to rashard ent size. COMPARISON: None. FINDINGS: Image quality: Excellent. Lung bases and heart: Unremarkable. Liver: Liver is diffusely hypoattenuating, consistent with fatty infiltration. Gallbladder and biliary tree: Unremarkable. Spleen: No splenomegaly. Pancreas: No pancreatic ductal dilation. Adrenals: No adrenal nodule. Kidneys and ureters: No hydronephrosis. No renal cystic lesion which requires follow up. No solid mas s. Bowel and peritoneum: No bowel distension. No pathologic free fluid. Normal appendix. A small diverti culum is seen arising from the 2nd portion of the duodenum without signs of acute diverticulitis. Lymph nodes: No central or retroperitoneal adenopathy. Vessels: No infrarenal aortic aneurysm. PELVIS Reproductive organs: Unremarkable. Bladder: No abnormal wall thickening, accounting for underdistension. Pelvic lymph nodes: No pelvic adenopathy by size criteria. Bones: No aggressive osseous abnormality. Degenerative changes are seen in the spine with mild levoco nvex curvature. Degenerative changes also noted at the pubic symphysis. Other: A moderately sized fat-containing periumbilical hernia is present. IMPRESSION: 1.No acute abnormality is identified in the abdomen or pelvis. 2.Diffuse hepatic steatosis. Reviewed by: Eric Vazquez MD on 05/16/2023 9:33 PM PDT Approved by: Eric Vazquez MD on 05/16/2023 9:33 PM PDT Station ID: [id number]
[2023-05-16 21:40] VITALS: BP 129/83
[2023-05-16] MEDS ORDERED: HYDROcod/ACET 5/325 Prepack 4 PO STA (21:43)
[2023-05-16 22:16] VITALS: O2SAT 97
== END 2023-05-16 22:03 | disposition home or self-care (01) ==
LOC: ED 18:39
DX: R10.32 Left lower quadrant pain (principal); F17.200 Nicotine dependence, unspecified, uncomplicated; Z79.899 Other long term (current) drug therapy
CPT/HCPCS: 36415; 74177; 80053; 80306; 81003; 85025; 96374; 96375; 96376; 99284; J1170; Q9967; 81001; 87086

== ENCOUNTER 2023-07-23 11:47 | Outpatient (CLI) | payer OTHER ==
[2023-07-23] MEDS ORDERED: iohexoL-300 100 ML VIAL IVP ONE (14:59)
[2023-07-23] MEDS ORDERED: BARIUM SULFATE 1,900 ML BOTTLE RC ONE (15:00)
--- NOTE | 2023-07-23 15:54 | CT Report ---
PROCEDURE: ABDOMEN/PELVIS W INDICATIONS: UMBILICAL HERNIA CONTRAST: 100ml omni 300 TECHNIQUE: After the administration of oral and intravenous contrast, 5 mm thick sections acquired from the diap hragms to the symphysis. 5 mm thick coronal and sagittal reformats were acquired. For radiation dos e reduction, the following was used: automated exposure control, adjustment of mA and/or kV accordin g to patient size. COMPARISON: 05/16/2023 FINDINGS: Image quality: Excellent. Lung bases and heart: Unremarkable. Liver: No solid mass. Moderate diffuse hepatic steatosis. Gallbladder and biliary tree: No radiopaque stones or wall thickening. No biliary dilation. Spleen: No splenomegaly. Pancreas: No pancreatic ductal dilation. Adrenals: No adrenal nodule. Kidneys and ureters: No hydronephrosis. No renal cystic lesion which requires follow up. No solid mas s. Bowel and peritoneum: No bowel distension. No pathologic free fluid. Lymph nodes: No central or retroperitoneal adenopathy. Vessels: No infrarenal aortic aneurysm. PELVIS Reproductive organs: Unremarkable. Bladder: No abnormal wall thickening, accounting for underdistension. Pelvic lymph nodes: No pelvic adenopathy by size criteria. Bones: No aggressive osseous abnormality. Other: Moderate fat-containing umbilical hernia. IMPRESSION: 1. Moderate fat-containing umbilical hernia. 2. Moderate diffuse hepatic steatosis. 3. Incidental note made of lumbar degenerative change with severe canal stenosis. 4. No acute abdominal process. Reviewed by: Catrachito Hemphill MD on 07/23/2023 3:52 PM PDT Approved by: Catrachito Hemphill MD on 07/23/2023 3:52 PM PDT Station ID: [id number]
== END 2023-07-23 11:48 | disposition home or self-care (01) ==
LOC: DI 11:47
PROVIDERS: ATTEND Internal Medicine
DX: K42.9 Umbilical hernia without obstruction or gangrene (principal); Z79.899 Other long term (current) drug therapy; K76.0 Fatty (change of) liver, not elsewhere classified
CPT/HCPCS: 74177; A9270; Q9967

== ENCOUNTER 2024-04-22 08:00 | Outpatient (CLI) | payer OTHER ==
--- NOTE | 2024-04-22 14:59 | XRAY Report ---
PROCEDURE: Tib/Fib RT INDICATIONS: RIGHT LOWER LEG LACERATION TECHNIQUE: 2 views of the tibia and fibula were acquired. COMPARISON: None. FINDINGS: Bones: No fractures or dislocations. No suspicious bony lesions. Soft tissues: No suspicious soft tissue calcifications or masses. IMPRESSION: No visualized acute fracture or dislocation. However, occult injury cannot be excluded. Recommend pal rt interval imaging follow-up in 7-10 days as clinically indicated for additional evaluation. Reviewed by: Li Lovett MD on 04/22/2024 2:58 PM PDT Approved by: Li Lovett MD on 04/22/2024 2:58 PM PDT Station ID: [id number]
== END 2024-04-22 23:59 | disposition home or self-care (01) ==
LOC: DI.S 08:00
PROVIDERS: ATTEND Registered Nurse
DX: S81.811A Laceration without foreign body, right lower leg, initial encounter (principal)